=== PATIENT | female | born 1990 | race Caucasian/White ===

== ENCOUNTER 2023-10-13 09:10 | Outpatient (CLI) | payer OTHER ==
[2023-10-13] MEDS ORDERED: RINGERS SOLUTION,LACTATED 1,000 ML IV SCH (09:30)
[2023-10-13 09:43] LABS: HEMOGLOBIN 11.1 g/dL (12.0-15.00); MEAN CELL VOLUME 83.8 fL (80.00-100.00); MEAN CORPUSCULAR HEMOGLOBIN 28.3 pg (27.00-32.0); MEAN CORPUSCULAR HGB CONC 33.8 g/dl (32.0-36.0); RED BLOOD COUNT 3.93 M/uL (4.00-6.00); RED CELL DISTRIBUTION WIDTH 14.6 % (11.5-14.5)
[2023-10-13 09:44] LABS: PLATELET COUNT 102 K/uL (150-450)
[2023-10-13 09:58] LABS: URINE APPEARANCE Clear; URINE BILIRRUBIN Negative (NEGATIVE); URINE BLOOD Negative; URINE COLOR Yellow; URINE GLUCOSE Negative (NEGATIVE); URINE KETONE 15 (NEGATIVE); URINE LEUKOCYTE Negative; URINE NITRATE Negative; URINE PROTEIN Trace (NEGATIVE); URINE UROBILINOGEN 0.2 E.U./dl
[2023-10-13 10:01] LABS: URINE BACTERIA 1865.8 uL (0.0-1933); URINE RBC 51.1 uL (0.0-20.8); URINE WBC 20.2 uL (0.0-23.2)
[2023-10-13] MEDS ORDERED: ALLEGRA ALLERG180 MG (10:20)
[2023-10-13] MEDS ORDERED: PRENA1 TRUE CO1 EACH PO (10:20)
[2023-10-13] MEDS ORDERED: SINGULAIR10 MG PO (10:21)
[2023-10-13] MEDS ORDERED: GLUMETZA500 MG (10:21)
[2023-10-13] MEDS ORDERED: ADULT LOW DOSE81 M1 PO (10:21)
[2023-10-13 10:29] LABS: URINE CAST 0.45 uL (0.0-1.40)
[2023-10-13] MEDS ORDERED: CEFAZOLIN SODIUM 1,000 MG VIAL IV SCH (13:00)
== END 2023-10-13 16:04 | disposition home or self-care (01) ==
LOC: OBS/DEL 09:10
PROVIDERS: ATTEND Obstetrics & Gynecology
DX: O99.113 Other diseases of the blood and blood-forming organs and certain disorders involving the immune mechanism complicating pregnancy, third trimester (principal); O24.419 Gestational diabetes mellitus in pregnancy, unspecified control; Z3A.32 32 weeks gestation of pregnancy; R82.71 Bacteriuria; O26.849 Uterine size-date discrepancy, unspecified trimester; O36.8199 Decreased fetal movements, unspecified trimester, other fetus